=== PATIENT | male | born 1955 | race Caucasian/White ===

== ENCOUNTER 2023-09-17 18:36 | Inpatient (IN) | payer BC, MEDICARE, SELFPAY ==
[2023-09-17] VITALS (17 sets, daily range): BP systolic 158–199; BP diastolic 70–144; BMI 29.3
[2023-09-17 13:39] LABS: % Basophils 0.3 % (0-2); % Immature Granulocytes 0.5 % (0-0.5); % Lymphocytes 9.8 % (20.5-51.1); % Monocytes 5.8 % (1.7-9.3); % Neutrophils 83.6 % (42.2-75.2); Absolute Lymphocytes 0.6 10^3/uL (1.2-3.4); Absolute Monocytes 0.4 10^3/uL (0.1-0.6); Hematocrit 31.5 % (39.0-52.0); Hemoglobin 11.2 g/dL (13.0-18.0); Mean Corp Hgb Conc. 35.6 g/dL (33.0-37.0); Mean Corpuscular Hgb 31.7 pg (27.0-31.0); Mean Corpuscular Volume 89.2 fL (80.0-94.0); Mean Platelet Volume 8.2 fL (7.4-10.4); Nucleated Red Blood Cells % 0 % (-); Platelet Count 188 10^3/uL (130-400); Red Blood Cell Count 3.53 10^6/uL (4.70-6.10)
[2023-09-17] MEDS: NSS 1000 IV (13:41)
--- NOTE | 2023-09-17 13:46 | ED.GENMED ---
History of Present Illness
<Kwame Austin MD - Last Filed: 09/17/23 14:11>
General
Chief Complaint: Dizziness
Time Seen by Provider: 09/17/23 12:49
Travel History
Have you had any contact with someone who has COVID-19?: No
Do you have any symptoms of coronavirus? Fever > 100 degrees, chills, cough, shortness of breath, sore throat, loss of taste or smell, muscle aches, or headache?: No
<Twila Palomares PA-C - Last Filed: 09/17/23 17:47>
General
Source: patient and family
Exam Limitations: none
Nursing documentation reviewed up to this point in time: agreed with
History of Present Illness
History of Present Illness:
Patient is a 68-year-old male with past medical history of hypertension and insulin-dependent diabetes who presents to the emergency department accompanied by his father from his PCPs office for evaluation. Patient reports that his symptoms started
6 days ago shortly after eating some clams. Patient reports he developed nausea and vomiting but no diarrhea. Patient reports that the nausea and vomiting seem to improve although he did occasionally have it over the next few days. Patient
reports that he then developed a frontal headache, mostly between his eyes. Patient went to see his primary care provider who believed that his symptoms were due to dehydration. Patient was prescribed antinausea medication which he took and was
able to drink but was drinking less than usual. Patient reports that then 2 mornings ago, he woke up and had drooping of his right eyelid. Patient reports that this morning, he had double vision from his right eye. Patient reports the double
vision resolved but he still has some blurred vision. Patient went back to his primary care provider's office this morning and they referred him to the emergency department for concerns of possible subacute stroke. Patient does endorse persistent
mild headache. Patient also notes feeling 'off balance'. Patient denies fevers, chills, chest pain, shortness of breath, change in his bowel habits. Patient denies any history of similar in the past.
Past History
<Kwame Austin MD - Last Filed: 09/17/23 14:11>
Past History
ED Past Medical History: GERD, HTN, Hypercholesterolemia and NIDDM
ED Past Surgical History: Other (Left leg surgery for fracture )
Social History
Tobacco: Non-smoker
Alcohol: Occasional
Employment: Employed
Family History
Family History: Hypertension
Review of Systems
<Twila Palomares PA-C - Last Filed: 09/17/23 17:47>
Review of Systems
Allergies reviewed?: Yes
All Other Systems: ROS reviewed and negative except as documented in HPI and ROS
Constitutional: Reports no symptoms
EENT: Reports other (right eyelid drooping, diplopia, blurred vision)
Respiratory: Reports no symptoms
Cardiac: Reports no symptoms
ABD/GI: Reports nausea and vomiting; Denies abdominal pain or diarrhea
: Reports no symptoms
Musculoskeletal: Reports no symptoms
Skin: Reports no symptoms
Neurological: Reports dizzy and headache
Endocrine: Reports no symptoms
Hematologic/Lymphatic: Reports no symptoms
Psychiatric: Reports no symptoms
Phy Exam
<Twila Palomares PA-C - Last Filed: 09/17/23 17:47>
General Physical Exam
General Presentation: well appearing and no apparent distress
General Skin: warm and dry
General Habitus: normal
General Mental: alert
General Hydration: appears well hydrated
ENT Exam
ENT Exam: EOMI, pharynx normal, neck supple, normocephalic and other (right eyelid ptosis noted)
Eye Exam
Eye Exam: PERRL, cornea clear and conjunctiva normal
Cardiovascular Exam
Cardiovascular Exam: regular rate/rhythm, no edema, no murmur and normal peripheral pulses
Pulmonary Exam
Pulmonary Exam: lungs clear, no respiratory distress, no rales, no crackles, no rhonchi, no stridor, no wheezing and no cough
Gastrointestinal Exam
Gastrointestinal Exam: normal bowel sounds, non tender, soft, no organomegaly, no pulsatile mass and non distended
Neurological Exam
Neurological Exam: alert, oriented x3, no motor deficits, speech normal, cerebellum intact and facial droop
Musculoskeletal Exam
Musculoskeletal Exam: full ROM and no edema
Skin Exam
Skin Exam: normal color, warm/dry, no rash and no petechia
Psychiatric Exam
Psychiatric Exam: normal mood/affect
Scores
<Twila Palomares PA-C - Last Filed: 09/17/23 17:47>
NIH Stroke Score
Level of Consciousness: 0 - Alert
LOC Questions: 0-Answers both correctly
LOC Commands: 0-Performs both correctly
Best Horizontal Gaze: 0-Normal
Visual Soto: 0=Normal, no visual loss
Facial Palsy: 1=Minor paralysis
Motor - Right Arm: 0=No drift 10 seconds
Motor - Left Arm: 0=No drift 10 seconds
Motor - Right Le-No drift 5 seconds
Motor - Left Le-No drift 5 seconds
Limb Ataxia: 0-Absent
Sensation: 0-Normal
Best Language: 0-No aphasia
Dysarthria: 0-Normal
Extinction and Inattention: 0-No abnormality
Total Score:: 1
Course
<Kwame Austin MD - Last Filed: 09/17/23 14:11>
Orders/Labs/Results
Orders:
Orders
09/17/23 11:42
EKG [Electrocardiogram (*1)] Urgent
Reason for Study: Vertigo / Dizzy
EKG- Treatment ONCE
09/17/23 13:15
CT Head & Neck Angio W/wo IV Urgent
Comment:
Reason For Exam: headache, nausea, vomiting, right eyelid ptosis
09/17/23 13:17
EKG- Treatment ONCE
0.9% Sodium Chloride 1000 ml [Nss] 1,000 ml IV BOLUS
09/17/23 13:33
PTT Urgent
Prothrombin Time Urgent
Troponin I Urgent
09/17/23 13:34
Complete Blood Count/With Diff Urgent
09/17/23 14:44
Comprehensive Metabolic Panel Urgent
Abnormal Lab Results
09/17/23 09/17/23 09/17/23
13:33 13:34 14:44
RBC 3.53 L 10^6/uL
(4.70-6.10)
Hgb 11.2 L g/dL
(13.0-18.0)
Hct 31.5 L %
(39.0-52.0)
MCH 31.7 H pg
(27.0-31.0)
Absolute Lymphs (auto) 0.6 L 10^3/uL
(1.2-3.4)
Neutrophils % 83.6 H %
(42.2-75.2)
Lymphocytes % 9.8 L %
(20.5-51.1)
PT 20.1 H Sec
(11.4-14.6)
APTT 35.4 H Sec
(23.4-35.0)
Sodium 129 L mmol/L
(135-145)
Chloride 96 L mmol/L
(98-107)
Creatinine 0.6 L mg/dL
(0.7-1.3)
Glucose 168 H mg/dl
(70-99)
Troponin I 0.037 H* ng/ml
09/17/23 13:34
09/17/23 14:44
Vital Signs
Initial and Last Documented VS:
Initial Vital Signs
Temp Pulse Resp BP Pulse Ox
97.5 F 94 18 180/90 98
09/17/23 11:37 09/17/23 11:37 09/17/23 11:37 09/17/23 11:37 09/17/23 11:37
Last Documented Vital Signs
Temp Pulse Resp BP Pulse Ox
97.5 F 96 20 194/91 95
09/17/23 11:37 09/17/23 15:30 09/17/23 15:30 09/17/23 15:00 09/17/23 15:30
<Twila Palomares PA-C - Last Filed: 09/17/23 17:47>
Orders/Labs/Results
Orders:
Orders
09/17/23 11:42
EKG [Electrocardiogram (*1)] Urgent
Reason for Study: Vertigo / Dizzy
EKG- Treatment ONCE
09/17/23 13:15
CT Head & Neck Angio W/wo IV Urgent
Comment:
Reason For Exam: headache, nausea, vomiting, right eyelid ptosis
09/17/23 13:17
EKG- Treatment ONCE
0.9% Sodium Chloride 1000 ml [Nss] 1,000 ml IV BOLUS
09/17/23 13:33
PTT Urgent
Prothrombin Time Urgent
Troponin I Urgent
09/17/23 13:34
Complete Blood Count/With Diff Urgent
09/17/23 14:44
Comprehensive Metabolic Panel Urgent
Abnormal Lab Results
09/17/23 09/17/23 09/17/23
13:33 13:34 14:44
RBC 3.53 L 10^6/uL
(4.70-6.10)
Hgb 11.2 L g/dL
(13.0-18.0)
Hct 31.5 L %
(39.0-52.0)
MCH 31.7 H pg
(27.0-31.0)
Absolute Lymphs (auto) 0.6 L 10^3/uL
(1.2-3.4)
Neutrophils % 83.6 H %
(42.2-75.2)
Lymphocytes % 9.8 L %
(20.5-51.1)
PT 20.1 H Sec
(11.4-14.6)
APTT 35.4 H Sec
(23.4-35.0)
Sodium 129 L mmol/L
(135-145)
Chloride 96 L mmol/L
(98-107)
Creatinine 0.6 L mg/dL
(0.7-1.3)
Glucose 168 H mg/dl
(70-99)
Troponin I 0.037 H* ng/ml
09/17/23 13:34
09/17/23 14:44
Vital Signs
Initial and Last Documented VS:
Initial Vital Signs
Temp Pulse Resp BP Pulse Ox
97.5 F 94 18 180/90 98
09/17/23 11:37 09/17/23 11:37 09/17/23 11:37 09/17/23 11:37 09/17/23 11:37
Last Documented Vital Signs
Temp Pulse Resp BP Pulse Ox
97.5 F 96 20 194/91 95
09/17/23 11:37 09/17/23 15:30 09/17/23 15:30 09/17/23 15:00 09/17/23 15:30
<Twila Palomares PA-C - Last Filed: 09/17/23 17:47>
*Critical Care Note
Total Time (30-74mins, 75-104mins- exclusive of procedures): Not Applicable
<Twila Palomares PA-C - Last Filed: 09/17/23 17:47>
Update Note
Update Note:
Patient is a 68-year-old male past medical history of hypertension and insulin-dependent diabetes who presents to the emergency department for evaluation of symptoms that started approximately 1 week ago. Patient reports that symptoms started with
nausea and vomiting. Patient reports that he then developed headache and an off-balance feeling. Patient reports that this morning he had double vision which transitioned to blurred vision. Finally, patient notes that 2 days ago he did wake up
with drooping of his right eyelid. Patient was sent to the emergency department by his PCP for concerns of possible stroke. On arrival, patient is hypertensive, afebrile. On exam, patient is well-appearing, he is in no acute distress, he does
have an obvious right eyelid ptosis with possible slight droop of the right nasolabial fold but no other neurological findings, he has a normal cardiopulmonary exam, and a benign abdomen. EKG was obtained and demonstrates a right bundle branch
block without evidence of acute ischemic changes or dysrhythmia. Labs notable for a mildly elevated troponin of 0.037 of unclear significance. CTA of the head and neck demonstrates evidence of small chronic infarcts as well as diffuse
atherosclerotic plaques but no evidence of acute abnormality. Case discussed with ED attending, will admit for neurology consultation and likely MRI. All results were discussed with the patient as well who expressed understanding and agreed.
Patient signed out to the hospitalist without complication.
ED Attending Note
<Kwame Austin MD - Last Filed: 09/17/23 14:11>
ED Attending Note
Patient seen and examined by attending physician: Yes
I performed the substantive portion of visit, reviewed & personally made and approve the management plan that is documented in note by myself or DAISHA.: Yes
ED Attending Note:
68-year-old male started with dizziness 4 to 5 days ago. Noted eye droop 2 to 3 days ago. Some headaches. Some dizziness. Intermittent double vision today.
On exam patient is nontoxic. He has an obvious right eyelid droop. He may have some loss of the right nasolabial fold. Speech is normal. Extraocular muscles intact. No eye palsy noted. Strong forehead muscles. [id number] normal. Nonfocal
otherwise.
Ptosis with questionable right facial droop and dizziness. Workup in progress. Warrants inpatient management
-
Portions of this chart may have been created with voice recognition software.� Occasional wrong word or��sound alike� substitutions may have occurred due to the inherent limitations of voice recognition software.
Discharge Plan
Departure
Patient Disposition: Admit
Date of Disposition: 09/17/23
Time of Disposition: 17:38
Presentation/result/management discussed w/ accepting MD/DO: Hospitalist
Patient with high blood pressure during this ER visit?: Yes
Condition: Good
Covid-19: Not Applicable
Discharge Problem:
Headache, Facial droop, Nausea & vomiting, Elevated troponin
Prescriptions:
No Action
aspirin 81 MG tablet,delayed release (DR/EC)
81 mg PO DAILY
pantoprazole 40 MG tablet,delayed release (DR/EC)
40 mg PO DAILY Qty: 15 0RF
atorvastatin 20 mg Tablet
20 mg PO DAILY
ondansetron 8 mg tablet,disintegrating
8 mg PO DAILY PRN (Reason: nausea/vomiting)
albuterol sulfate 90 mcg/actuation Hfa Aerosol Inhaler
1 puff INHALATION R Q4HPRN PRN (Reason: sob/wheezing)
insulin aspart U-100 [Novolog FlexPen U-100 Insulin] 100 unit/mL (3 mL) insulin pen
14 unit SC MEALS
insulin glargine [Lantus Solostar U-100 Insulin] 100 unit/mL (3 mL) insulin pen
45 unit SC HS
Referrals:
Cayetano Arana MD [Family Provider] -
Interventions
Interventions:
*Risk Screen - Suicide Last Done: 09/17/23 13:14
*General Assessment Last Done: 09/17/23 13:14
*Neglect/Abuse Screening Last Done: 09/17/23 13:14
*ED COVID-19 Vaccine History Last Done: 09/17/23 11:37
ED- Neurological Assessment Last Done: 09/17/23 13:14
Discharge Date and Time
Print Language: MOROCCAN
[2023-09-17 13:49] LABS: INR 1.73; PT 20.1 Sec (11.4-14.6)
[2023-09-17 13:50] LABS: APTT 35.4 Sec (23.4-35.0)
[2023-09-17 14:09] LABS: Troponin I 0.037 ng/ml
[2023-09-17 15:07] LABS: ALT (SGPT) 19 U/L (0-50); AST (SGOT) 25 U/L (17-59); Albumin 4.5 g/dl (3.5-5.0); Alkaline Phosphatase 78 U/L (38-126); Blood Urea Nitrogen 19 mg/dl (9-20); Calcium 9.6 mg/dl (8.4-10.2); Carbon Dioxide 22 mmol/L (22-30); Chloride 96 mmol/L (98-107); Glucose 168 mg/dl (70-99); Potassium 4.4 mmol/L (3.5-5.1); Sodium 129 mmol/L (135-145); Total Bilirubin 1.3 mg/dl (0.2-1.3); Total Protein 7.6 g/dl (6.3-8.2); eGFR > 60.00
--- NOTE | 2023-09-17 17:45 | HPS.HSE ---
Family Physician
-
Family Physician: Cayetano Arana
Chief Complaint
-
Headache, right upper eyelid droop with double vision, nausea
History of Present Illness
68-year-old male from home who reports for the past few days he has had pressure at the top of his nose between eyebrows including behind his nose with some pressure in the nares and occasional runny nose. He reports he has bad seasonal allergies
although is not taking any medications or nasal sprays. He states he has had nausea and vomiting for 6 days after eating clams and thought he was dehydrated. He was prescribed antinausea medication by his PCP. He also noted a right upper eyelid
droop 2 days ago then today developed double vision from the right eye. He went to his PCP this a.m. and was sent to the ER for evaluation of stroke. He reports a current head pressure of 1 out of 10, denies blurred vision, sore throat, fever,
chills, chest pain, palpitations, shortness breath, cough, abdominal pain, nausea, vomiting, diarrhea
PMH HTN, HLD, pericarditis, ex-smoker, GERD, DM2.
Medical History
Past Medical History
Past Medical History: Reports Other
Additional Past Medical History:
HTN
HLD
pericarditis
ex-smoker
GERD
DM2
Past Surgical History: Reports Other
Additional Past Surgical History:
ORIF left tib-fib May 2005
Social History
Tobacco: Non-smoker
Alcohol: Other (Weekly 5-7 beers)
Personal: Single
Living: With Family (Patient's father was with him)
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
Family History
Family History: Other (Mother age 91 dementia history TIA, pacemaker Father Alive unsure any medical problems Sister alive unsure any medical problems)
Allergies / Home Medications
Allergies reflects when Allergies were last updated in [employer].
Home Medications with original date entered in [employer]
Allergy/Medication List:
Allergies
Allergy/AdvReac Type Severity Reaction Status Date / Time
levofloxacin Allergy Severe Unknown Verified 09/17/23 11:41
Home Medications
pantoprazole 40 mg tablet,delayed release 40 mg PO DAILY #15 tabs 05/11/13
albuterol sulfate 90 mcg/actuation aerosol inhaler 1 puff inhalation R Q4HPRN PRN sob/wheezing 09/17/23
atorvastatin 20 mg tablet 20 mg PO DAILY 09/17/23
insulin aspart U-100 100 unit/mL (3 mL) subcutaneous pen (Novolog FlexPen U-100 Insulin aspart) 12 unit SC MEALS 09/17/23
insulin glargine 100 unit/mL (3 mL) subcutaneous pen (Lantus Solostar U-100 Insulin) 44 unit SC DAILY 09/17/23
losartan 100 mg-hydrochlorothiazide 12.5 mg tablet 1 tab PO DAILY 09/17/23
ondansetron 8 mg disintegrating tablet 8 mg PO DAILY PRN nausea/vomiting 09/17/23
Review of Systems
-
History Source: Patient
A 12 point ROS was completed and negative except as noted: Yes
Constitutional: Denies Fever or Chills
EENT: Reports Runny Nose and Other (Right upper eyelid droop, nasal pressure with rhinorrhea); Denies Sore Throat
Respiratory: Denies Cough or Trouble Breathing
Cardiac: Denies Chest Pain, Diaphoresis, Palpitations or Syncope
Abdomen/GI: Reports Nausea; Denies Abdominal Pain, Vomiting, Diarrhea, Constipated, Bloody Stools or Black Stools
: Denies Dysuria, Frequency, Flank Pain, Incontinence, Difficulty Voiding or Urgency
Musculoskeletal: Denies Joint Pain or Edema
Skin: Denies Itching or Rash
Neurological: Reports Headache and Other (Right upper eyelid droop); Denies Dizzy or Weakness
Endocrine: Reports No Symptoms
Hematologic/Lymphatic: Reports No Symptoms
Psych: Reports Calm
Physical Exam
Vital Signs
Vital Signs
Temp Pulse Resp BP Pulse Ox
97.5 F 96 20 194/91 95
09/17/23 11:37 09/17/23 15:30 09/17/23 15:30 09/17/23 15:00 09/17/23 15:30
Physical Exam
General: Comfortable and Conversant; No Fever or Chills
HEENT: NormoCephalic, Anicteric, Moist mucous membranes, PERRLA, Vandiver Conjunctivae and Other (Right upper eyelid droop, nasally congested when talking)
Respiratory: Clear; No Wheezes, Rales or Rhonchi
Cardiac: S1/S2 and Regular Rhythm; No Murmur, Rub, Gallop or Peripheral Edema
Breast: Deferred by me
GI: Soft, Non Tender, Non Distended, Normal Bowel Sounds and No Hepatosplenomegaly
Rectal: Deferred by Provider
Genito-urinary: Deferred by me
Musculoskeletal: No Clubbing, No Cyanosis and No Edema
Neuro: AO x 3, Nonfocal/grossly intact, No Sensory Deficits and Other (Right upper eyelid droop); No Slurred Speech or Facial Droop
Psych: Calm
Laboratory Results
-
09/17/23 13:34
09/17/23 14:44
Laboratory Results
PT 20.1 Sec (11.4-14.6) H 09/17/23 13:33
INR 1.73 09/17/23 13:33
APTT 35.4 Sec (23.4-35.0) H 09/17/23 13:33
Total Bilirubin 1.3 mg/dl (0.2-1.3) 09/17/23 14:44
AST 25 U/L (17-59) 09/17/23 14:44
ALT 19 U/L (0-50) 09/17/23 14:44
Alkaline Phosphatase 78 U/L (38-126) 09/17/23 14:44
Troponin I 0.037 ng/ml H* 09/17/23 13:33
Impression/Plan
-
Impression/plan:
Admit to telemetry
# Right upper eyelid droop concern for CVA/TIA
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
Symptoms of headache, Right upper eyelid droop x 2 days, 1 day diplopia right eye
-Consult Neurology
-MRI brain
-Check lipid profile, HgbA1c
-Continue give aspirin 81 mg daily, atorvastatin 20 mg
-PT/OT/case operator consult
HEAD CTA:
1. 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
2. Mild diffuse cerebral volume loss.
3. Severe calcific atherosclerotic plaque in both intracranial internal carotid arteries causing a 50-70% diameter stenosis in the cavernous segment of the left internal carotid artery.
4. 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
5. 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
6. Moderate hypoplasia of the basilar artery and small bilateral posterior cerebral arteries.
7. No CT evidence for acute intracranial hemorrhage or transcortical infarct.
8. SEVERE LEFT SPHENOID SINUSITIS. Moderate left maxillary and ethmoid air cell sinusitis.
#Atherosclerosis bilateral carotid arteries/>70% Right vertebral artery atherosclerotic plaque per CTA neck
NECK CTA:
1. Severe calcific atherosclerotic plaque in both proximal internal carotid arteries causing a 50-70% diameter stenosis on the right and 50% diameter stenosis on the left.
2. Severe calcific atherosclerotic plaque at the origin of the right vertebral artery causing a greater than 70% diameter stenosis.
3. Moderate discogenic degenerative disease at C6/C7 with a right central disc-osteophyte complex causing mild to moderate spinal cord compression and central canal stenosis.
# HTN urgency
158/144
-Continue losartan/HCTZ
-IV hydralazine 10 mg every 6 hours as needed SBP greater than 165
#Nonischemic myocardial injury
Troponin 0.037 will trend
EKG: Sinus rhythm with PACs 92 bpm, RBBB, QTc 507 MS
#Hx pericarditis
#Hyponatremia
NA 129
- follow bmp
#DM2
BS 168
-Accu-Cheks with SSI, check HgbA1c
-Continue Lantus 44 units subcu daily and NovoLog 12 units with meals
#GERD
-Continue PPI
#Ex-smoker
Dvt
scd's
Full code
--- NOTE | 2023-09-17 18:06 | W.PN.UPDATE ---
Update Note
Progress Note Update
I saw and examined the patient.
The MEDICAL OPERATIONS SUPERVISOR or PA's note was reviewed and I agree with the note.
Comment: 68 y/o M who p/w with multiple chief complaints including nausea and vomiting, frontal headache, and right ptosis for approximately a day and a half.
158/144, 89, 12, 97.5 F, 97% RA
NAD, awake and alert, NCAT
R ptosis
RRR, normal S1/S2
CTAB
aside from R ptosis, CN2-12 intact, non-focal
Lab Results
09/17/23 09/17/23 09/17/23
13:33 13:34 14:19
WBC 6.0
RBC 3.53 L
Hgb 11.2 L
Hct 31.5 L
MCV 89.2
MCH 31.7 H
MCHC 35.6
RDW 13.0
Plt Count 188
MPV 8.2
Abs Immat Gran (auto) 0.0
Absolute Neuts (auto) 5.0
Absolute Lymphs (auto) 0.6 L
Absolute Monos (auto) 0.4
Absolute Eos (auto) 0.0
Absolute Basos (auto) 0.0
Immature Gran % 0.5
Neutrophils % 83.6 H
Lymphocytes % 9.8 L
Monocytes % 5.8
Eosinophils % 0.0
Basophils % 0.3
Nucleated RBC % 0
PT 20.1 H
INR 1.73
APTT 35.4 H
Sodium Cancelled Cancelled
Potassium Cancelled Cancelled
Chloride Cancelled Cancelled
Carbon Dioxide Cancelled Cancelled
BUN Cancelled Cancelled
Creatinine Cancelled Cancelled
Estimated Creat Clear Cancelled Cancelled
eGFR Cancelled Cancelled
Glucose Cancelled Cancelled
Calcium Cancelled Cancelled
Total Bilirubin Cancelled Cancelled
AST Cancelled Cancelled
ALT Cancelled Cancelled
Alkaline Phosphatase Cancelled Cancelled
Troponin I 0.037 H*
Total Protein Cancelled Cancelled
Albumin Cancelled Cancelled
09/17/23
14:44
WBC
RBC
Hgb
Hct
MCV
MCH
MCHC
RDW
Plt Count
MPV
Abs Immat Gran (auto)
Absolute Neuts (auto)
Absolute Lymphs (auto)
Absolute Monos (auto)
Absolute Eos (auto)
Absolute Basos (auto)
Immature Gran %
Neutrophils %
Lymphocytes %
Monocytes %
Eosinophils %
Basophils %
Nucleated RBC %
PT
INR
APTT
Sodium 129 L
Potassium 4.4
Chloride 96 L
Carbon Dioxide 22
BUN 19
Creatinine 0.6 L
Estimated Creat Clear
eGFR > 60.00
Glucose 168 H
Calcium 9.6
Total Bilirubin 1.3
AST 25
ALT 19
Alkaline Phosphatase 78
Troponin I
Total Protein 7.6
Albumin 4.5
CTA head/neck:
NECK CTA:
1. Severe calcific atherosclerotic plaque in both proximal internal carotid arteries causing a 50-70% diameter stenosis on the right and 50% diameter stenosis on the left.
2. Severe calcific atherosclerotic plaque at the origin of the right vertebral artery causing a greater than 70% diameter stenosis.
3. Moderate discogenic degenerative disease at C6/C7 with a right central disc-osteophyte complex causing mild to moderate spinal cord compression and central canal stenosis.
HEAD CTA:
1. Severe calcific atherosclerotic plaque in both intracranial internal carotid arteries causing a 50-70% diameter stenosis in the cavernous segment of the left internal carotid artery.
2. 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
3. 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
4. Moderate hypoplasia of the basilar artery and small bilateral posterior cerebral arteries.
5. No CT evidence for acute intracranial hemorrhage or transcortical infarct.
6. 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
7. Mild diffuse cerebral volume loss.
8. SEVERE LEFT SPHENOID SINUSITIS. Moderate left maxillary and ethmoid air cell sinusitis.
Multitude of symptoms including recent nausea and vomiting, frontal headache, right-sided ptosis:
-Presented by the ER as concern for acute CVA
-CT angiogram of the head and neck notable for atherosclerotic disease and prior strokes in the right daigle radiata and both basal ganglia
-start ASA, cont statin
-admit to stroke pathway, MRI brain, tele
-c/s neuro
Hypertensive urgency:
-Continue losartan/hydrochlorothiazide
-IV hydralazine as needed
-Trend blood pressure and consider adding additional antihypertensive medications within the next 24 hours
DM2:
-check a1c
-cont Lantus/premeal Novolog
-SSI/accuchecks
[2023-09-17] MEDS: ASPIR LOW (ENTERIC COATED) 81 MG PO (18:32)
[2023-09-17] MEDS: APRESOLINE 10 MG IV ×2 (18:33→22:38)
[2023-09-17 21:46] LABS: Glucose - Point of Care 134 mg/dl (70-99)
[2023-09-17] MEDS: TYLENOL 650 MG PO (22:52)
[2023-09-18] VITALS (8 sets, daily range): BP systolic 122–161; BP diastolic 64–83; PULSE 96; O2SAT 97; BMI 29.3
[2023-09-18] MEDS: TYLENOL 650 MG PO (05:32)
[2023-09-18 06:39] LABS: % Basophils 0.6 % (0-2); % Immature Granulocytes 0.5 % (0-0.5); % Lymphocytes 23.2 % (20.5-51.1); % Neutrophils 63.7 % (42.2-75.2); Absolute Basophils 0.1 10^3/uL (0-0.2); Absolute Eosinophils 0.1 10^3/uL (0-0.7); Absolute Immature Granulocytes 0.1 10^3/uL (0-0.05); Absolute Lymphocytes 2.5 10^3/uL (1.2-3.4); Absolute Monocytes 1.2 10^3/uL (0.1-0.6); Absolute Neutrophils 6.7 10^3/uL (1.4-6.5); Hematocrit 46.4 % (39.0-52.0); Hemoglobin 16.7 g/dL (13.0-18.0); Mean Corpuscular Hgb 31.5 pg (27.0-31.0); Mean Corpuscular Volume 87.5 fL (80.0-94.0); Mean Platelet Volume 8.6 fL (7.4-10.4); Nucleated Red Blood Cells % 0 % (-); Platelet Count 343 10^3/uL (130-400); Red Cell Dist. Width 13.1 % (11.5-14.5); White Blood Cell Count 10.6 10^3/uL (4.8-10.8)
[2023-09-18 06:41] LABS: Blood Urea Nitrogen 17 mg/dl (9-20); Calcium 9.1 mg/dl (8.4-10.2); Carbon Dioxide 23 mmol/L (22-30); Chloride 98 mmol/L (98-107); Estimated Creatinine Clearance 100 ml/min; Glucose 124 mg/dl (70-99); HDL Cholesterol 53 mg/dl; LDL Cholesterol, Calculated 166 mg/dl; Sodium 132 mmol/L (135-145); Total Cholesterol 239 mg/dl (50-199); Triglyceride 104 mg/dl (10-149); Very Low Density Lipoprotein 20 mg/dl (0-30); eGFR > 60.00
[2023-09-18 08:00] LABS: Glucose - Point of Care 125 mg/dl (70-99)
[2023-09-18] MEDS: HYZAAR 100-12.5 TABLET 1 TAB PO (08:18)
[2023-09-18] MEDS: PROTONIX 40 MG PO (08:19)
[2023-09-18] MEDS: LIPITOR 20 MG PO (08:19)
[2023-09-18] MEDS: LANTUS 0.440000000000000002 UNITS SC (08:19)
[2023-09-18] MEDS: ASPIR LOW (ENTERIC COATED) 81 MG PO (08:19)
--- NOTE | 2023-09-18 08:22 | W.PN.HOSP.TC ---
Today's Communication/Plan
-
see bold
Assessment / Plan
Assessment / Plan
Gen: NAD, AAOx3.
Eyes: EOMI, PERRLA, no scleral icterus, R ptosis.
Neck: supple.
CV: RRR, +S1/S2, no m/r/g.
Resp: CTAB, no rales, wheezes, or rhonchi.
Abd: +BS, soft, NT, ND
Skin: No rashes.
Neuro: R ptosis, 5/5 strength x 4
Psych: Normal mood and affect.
CTA head/neck:
NECK CTA:
1. Severe calcific atherosclerotic plaque in both proximal internal carotid arteries causing a 50-70% diameter stenosis on the right and 50% diameter stenosis on the left.
2. Severe calcific atherosclerotic plaque at the origin of the right vertebral artery causing a greater than 70% diameter stenosis.
3. Moderate discogenic degenerative disease at C6/C7 with a right central disc-osteophyte complex causing mild to moderate spinal cord compression and central canal stenosis.
HEAD CTA:
1. Severe calcific atherosclerotic plaque in both intracranial internal carotid arteries causing a 50-70% diameter stenosis in the cavernous segment of the left internal carotid artery.
2. 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
3. 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
4. Moderate hypoplasia of the basilar artery and small bilateral posterior cerebral arteries.
5. No CT evidence for acute intracranial hemorrhage or transcortical infarct.
6. 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
7. Mild diffuse cerebral volume loss.
8. SEVERE LEFT SPHENOID SINUSITIS. Moderate left maxillary and ethmoid air cell sinusitis.
Multitude of symptoms including recent nausea and vomiting, frontal headache, right-sided ptosis:
-Presented by the ER as concern for acute CVA
-CT angiogram of the head and neck notable for atherosclerotic disease and prior strokes in the right daigle radiata and both basal ganglia
-cont ASA/statin
-check MRI brain
-cont tele (no afib/flutter on my review)
-c/s neuro
Hypertensive urgency:
-Continue losartan/hydrochlorothiazide
-start Procardia XL
-IV hydralazine as needed
DM2:
-check a1c
-cont Lantus/premeal Novolog
-SSI/accuchecks
FULL/Lovenox
Anticipated Discharge: Within 24 hours
Subjective/Interval History
-
Date of Service: September 18, 2023
Still with blurry vision in the right eye.
Objective Data
-
Labs:
Laboratory Results
09/18/23
05:18
WBC 10.6
Hgb 16.7 D
Hct 46.4
Plt Count 343 D
Sodium 132 L
Potassium 4.0
Chloride 98
Carbon Dioxide 23
BUN 17
Creatinine 0.7
Glucose 124 H
Calcium 9.1
Vital Signs:
Vital Signs
Temp Pulse Resp BP Pulse Ox
98.0 F 95 18 127/64 97
09/18/23 03:00 09/18/23 03:00 09/18/23 03:00 09/18/23 03:00 09/18/23 03:00
I&O
09/17/23 09/18/23 09/19/23
06:59 06:59 06:59
Intake Total 120 / 120
Balance 120 / 120
[2023-09-18] MEDS: NOVOLOG FLEXPEN SC (08:32)
--- NOTE | 2023-09-18 09:35 | CON.NEURO ---
Neuro Assessment/Plan
Assessment
IMPRESSIONS/RECOMMENDATIONS:
Abrupt onset headache, ptosis, 3rd nerve palsy on the right
In a patient with questionable immunosuppression due to poorly controlled diabetes
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
Plan
Consider lumbar puncture based on MRI of brain results
Not clear patient would benefit from use of antibiotics for severe left sphenoid sinusitis
Consider outpatient vascular surgery evaluation based on significant bilateral proximal internal artery stenosis estimated between 50 and 70% on the right and 50% on the left
Increase atorvastatin dosing from 20 to 80 mg due to elevated cholesterol and LDL with prior chronic ischemic lacunar strokes as per CT of head
Not clear patient would benefit from neurosurgical evaluation at this time
Initiate aspirin 81 mg daily due to demonstration of lacunar strokes by MRI brain
Rehabilitation evaluations
Will continue to follow
Consultation
Order
Date of Consultation: 09/18/23
Requesting Provider: Hospitalists
Reason for Consult: Right eye ptosis and headache
Subjective/Objective
Subjective Data
Date of Service: September 18, 2023
Patient presented to his primary care provider on the same day of presentation to this [facility]'s emergency department.
Patient was described as developing 7 days prior to his presentation with nausea and emesis on September 11, 2023 with persistent abdominal discomfort.
Burning sensation behind the nose= headache on September 13, 2023, constant since onset, worsening sensation in right eye.
Drooping of right eye lid started September 15, 2023.
September 16, 2023 developed dizziness upon awakening. Standing and moving head fast worsens. Variable.
The patient then diplopia blurring in the right eye. None previously.
The patient was described at his visit with his PCP as having 20/50 vision on the right and 20/30 on the left with glasses.
The patient was noted to have worsening gait and therefore was referred to this hospital's emergency department.
Intensity 1 out 10 currently.
Objective Data
Vital Signs
Temp Pulse Resp BP Pulse Ox
36.6 C 88 16 149/79 95
09/18/23 07:00 09/18/23 08:18 09/18/23 07:00 09/18/23 08:18 09/18/23 07:00
Lab Results
09/18/23 05:18
09/18/23 05:18
PT 20.1 Sec (11.4-14.6) H 09/17/23 13:33
INR 1.73 09/17/23 13:33
APTT 35.4 Sec (23.4-35.0) H 09/17/23 13:33
Sodium 132 mmol/L (135-145) L 09/18/23 05:18
Potassium 4.0 mmol/L (3.5-5.1) 09/18/23 05:18
BUN 17 mg/dl (9-20) 09/18/23 05:18
Glucose 124 mg/dl (70-99) H 09/18/23 05:18
Calcium 9.1 mg/dl (8.4-10.2) 09/18/23 05:18
LDL Cholesterol, Calc 166 mg/dl 09/18/23 05:18
Patient Allergies
levofloxacin Allergy (Severe, Verified 09/17/23 11:41)
Unknown
Review of Systems
-
History Source: Patient
All other systems: Reviewed and negative
EENT: Decreased Vision (in the right eye); Negative Swallowing Difficulty
Respiratory: Negative Trouble Breathing
Cardiac: Negative Chest Pain
Abdomen/GI: Negative Incontinence of Stool
Genitourinary: Negative Incontinence
Musculoskeletal: Negative Back Pain or Neck Pain
Neuro: Dizzy and Headache
Physical Exam
-
General: No Apparent Distress and Appears Stated Age
Eyes: OU Absent Papilledema, Round OU, Marshall Conjunctivae and No Ptosis
HEENT: Anicteric and Moist Mucous Membranes
Neck: Full Range of Motion
Respiratory: No Dyspnea
Cardiac: No JVD
GI: Normal Bowel Sounds and Soft
Skin: Unremarkable
Extremities: No Clubbing, No Cyanosis and No Edema
Psych: Intact Judgement/Insight
Extended Neurological Exam
Mood & Affect: Mood Unremarkable and Affect Unremarkable
Attention Span & Concentration: Awake, Alert, Interactive and Mild Difficulty with 2 Step Request
Memory: Unremarkable
Tremor: Hand Tremor Absent and Head Tremor Absent
Speech: Quality Unremarkable and Quantity Unremarkable
Cranial Nerve II: Left Eye: Pupillary Reactivity Unremarkable, Pupillary Size Unremarkable and Visual Soto Intact
Cranial Nerve II: Right Eye: Pupillary Reactivity Unremarkable, Pupillary Size Unremarkable and Visual Soto Intact
Cranial Nerves III, IV, : Extraocular Movement: Ptosis on Right (touches middle of iris); Negative Extraocular Movement Full in all Directions (reduced ABduction and upgaze with right eye, full left eye)
Cranial Nerve V: Facial Sensation: Reduced
Cranial Nerve VII: Facial Symmetry: Normal Facial Symmetry
Cranial Nerve VIII: Hearing: Unremarkable Hearing to Normal Conversational Volume
Cranial Nerves IX, X: Palate Movement: Palate Elevation Symmetric
Cranial Nerve XI: Shoulder Shrug: Unremarkable
Cranial Nerve XII: Tongue Protusion: Midline
Muscle Strength, Overall: Full Throughout
Muscle Bulk & Tone: Bulk Unremarkable and Tone Unremarkable
Pronator Drift: No Drift in Upper Extremities
Deep Tendon Reflexes: Trace Throughout
Touch Sensation: Unremarkable
Coordination: [id number] Testing Unremarkable
Babinski Sign: Absent Bilaterally
Data Reviewed
-
CT-A: Report Reviewed (NECK CTA: 1. Severe calcific atherosclerotic plaque in both proximal internal carotid arteries causing a 50-70% diameter stenosis on the right and 50% diameter stenosis on the left. 2. Severe calcific atherosclerotic
plaque at the origin of the right vertebral artery causing a greater than 70% )
MRI Head: Report Reviewed and Image Reviewed
Labs: Report Reviewed
Reviewed with: Physician, Nurse and Patient
Old Records: Summarized
Medications
-
Active Medications
Generic Name Dose Route Start Last Admin
Trade Name Freq PRN Reason Stop Dose Admin
Acetaminophen 650 mg 09/17/23 20:16
Acetaminophen 650 Mg Rectal Suppository RECTAL 10/15/23 20:15
Q4HPRN PRN
WARE, mild pain, or temp >100.4F
Acetaminophen 650 mg 09/17/23 20:16 09/18/23 05:32
Acetaminophen 325 Mg Tablet PO 10/15/23 20:15 650 mg
Q4HPRN PRN Administration
WARE, mild pain, or temp >100.4F
Aspirin 81 mg 09/18/23 08:00 09/18/23 08:19
Aspirin 81 Mg (Enteric Coated) Tablet PO 10/16/23 07:59 81 mg
DAILY LYNNE Administration
Atorvastatin Calcium 20 mg 09/18/23 08:00 09/18/23 08:19
Atorvastatin (Lipitor) 20 Mg Tablet PO 10/16/23 07:59 20 mg
DAILY LYNNE Administration
Dextrose 12.5 grams 09/17/23 20:16
Dextrose 50% (0.5 Grams/Ml) 50 Ml Syringe IV 10/15/23 20:15
[id number] PRN
hypoglycemia
Protocol
Enoxaparin Sodium 40 mg 09/18/23 18:00
Enoxaparin Sodium 40 Mg/0.4 Ml Syringe SC 10/16/23 17:59
QPM LYNNE
Glucagon 1 mg 09/17/23 20:16
Glucagon 1 Mg Vial IM 10/15/23 20:15
PRN PRN
hypoglycemia
Protocol
HCTZ/Losartan Potassium 1 tab 09/18/23 08:00 09/18/23 08:18
Losartan (100 Mg)/Hydrochlorothiazide (12.5 Mg) Tablet PO 10/16/23 07:59 1 tab
DAILY LYNNE Administration
Hydralazine HCl 10 mg 09/17/23 22:14 09/17/23 22:38
Hydralazine 20 Mg/Ml Vial IV 10/15/23 22:13 10 mg
Q4HPRN PRN Administration
SBP>165
Insulin Glargine 44 units/ 0.44 mls @ 0 mls/hr 09/18/23 08:00 09/18/23 08:19
Device SC 10/16/23 07:59 0.44 mls
DAILY LYNNE Administration
As Directed
Insulin Aspart 12 units 09/18/23 08:00 09/18/23 08:32
Insulin Aspart (100 Units/Ml) 3 Ml Flexpen SC 10/16/23 07:59 Not Given
MEALS LYNNE
Ondansetron HCl 8 mg 09/17/23 22:32
Ondansetron 4 Mg (Orally-Disintegrating) Tablet PO 10/15/23 22:31
DAILY PRN
nausea/vomiting
Pantoprazole Sodium 40 mg 09/18/23 08:00 09/18/23 08:19
Pantoprazole 40 Mg Delayed Release Tablet PO 10/16/23 07:59 40 mg
DAILY LYNNE Administration
Sodium Chloride 0 flush 09/17/23 23:00
Sodium Chloride 0.9% (Flush) Syringe IV 10/15/23 22:59
PER PROTOCOL LYNNE
Home Medications
�Medication �Instructions �Recorded
pantoprazole 40 mg tablet,delayed 40 mg PO DAILY #15 tabs 05/11/13
release
albuterol sulfate 90 mcg/actuation 1 puff inhalation R Q4HPRN PRN 09/17/23
aerosol inhaler sob/wheezing
atorvastatin 20 mg tablet 20 mg PO DAILY High Cholesterol 09/17/23
insulin aspart U-100 100 unit/mL 12 unit SC MEALS Diabetes 09/17/23
(3 mL) subcutaneous pen (Novolog
FlexPen U-100 Insulin aspart)
insulin glargine 100 unit/mL (3 44 unit SC DAILY Diabetes 09/17/23
mL) subcutaneous pen (Lantus
Solostar U-100 Insulin)
losartan 100 1 tab PO DAILY Blood Pressure 09/17/23
mg-hydrochlorothiazide 12.5 mg
tablet
ondansetron 8 mg disintegrating 8 mg PO DAILY PRN nausea/vomiting 09/17/23
tablet
Past History
Past History
ED Past Medical History: GERD, HTN, Hypercholesterolemia, NIDDM and Other (Pericarditis, obesity)
ED Past Surgical History: Other (Left leg surgery for fracture, transforaminal epidural steroids at L4 in 2020)
Social History
Tobacco: Non-smoker
Alcohol: Occasional
Employment: Employed
Family History
Family History: Hypertension
[2023-09-18 10:17] LABS: Glycohemoglobin (HgbA1c) 8.7 % (4.0-5.6)
[2023-09-18] MEDS: PROCARDIA XL (EXTENDED RELEASE) 30 MG PO (11:36)
[2023-09-18 11:39] LABS: Glucose - Point of Care 185 mg/dl (70-99)
[2023-09-18] MEDS: NOVOLOG FLEXPEN 12 UNITS SC ×2 (14:23→18:39)
[2023-09-18 16:53] LABS: Glucose - Point of Care 200 mg/dl (70-99)
[2023-09-18] MEDS: MESTINON 60 MG PO ×2 (17:18→21:17)
[2023-09-18] MEDS: LOVENOX 40 MG SC (17:18)
[2023-09-18 22:01] LABS: Glucose - Point of Care 98 mg/dl (70-99)
[2023-09-19 03:08] VITALS: BP 150/71
[2023-09-19 07:38] VITALS: BP 133/73
--- NOTE | 2023-09-19 08:23 | W.PN.NEURO.1 ---
Addendum entered and electronically signed by Davie Bond MD 09/19/23 12:24:
I saw and evaluate the patient I reviewed the note by Sowmya Worrell and agree with the findings the following comments:
68-year-old man with past medical history of diabetes, hypertension, pericarditis, hyperlipidemia presented to hospital with pain and pressure at the top of his nose and between his eyebrows as well as right-sided ptosis and binocular diplopia.
Before the onset of the pressure feeling in diplopia he had not had any unusual headaches, head or neck trauma, unilateral paresthesia or weakness or speech difficulty, jaw claudication or fever or chills or unusual weight loss. Double vision is
worse when looking to the left.
Neurologic examination shows normal mental status
There is right eye ptosis with impaired abduction of the right eye and minimally impaired elevation, pupils are symmetric and round and reactive to light bilaterally, other cranial nerves are normal left eye is normal movement
Motor strength notes no weakness of shoulder abduction
MRI brain with and without contrast does not show any abnormal enhancement in the cavernous sinus no signs of pituitary abnormality some chronic infarcts are noted.
CTA of the head and neck showed 57% right carotid stenosis and 50% stenosis on the left carotid, as well as intracranial atherosclerotic plaque in the intracranial portion of the carotid arteries bilaterally. No aneurysms seen.
Sinusitis in the left sphenoid is seen.
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 The right eye problems cannot be due to the left-sided sinusitis. There is still some possibility for myasthenia but I feel this is
less likely given he did not respond at all to Mestinon and has not had any fluctuating symptoms of diplopia and ptosis dysarthria dysphagia or motor symptoms.
Recommendations
-Stop pyridostigmine
-Add on labs for acetylcholine blocking binding and modulating antibodies
-Encourage control of diabetes
-He should patch to right eye and will be acceptable for driving with the right eye patched
-If this is indeed diabetic induced cranial nerve III palsy this will most likely improve over the course of several weeks to few months
-No further workup or monitoring felt necessary as an inpatient
-Aspirin 81 mg daily given asymptomatic chronic strokes seen on MRI brain and the carotid stenosis
Original Note:
Today's Communication / Plan
-
.
Neuro Assessment/Plan
Assessment
IMPRESSIONS/RECOMMENDATIONS:
Abrupt onset headache, ptosis, 3rd nerve palsy on the right in the setting of long-standing diabetes.
-CTA head/neck 09/17/23: NECK CTA: Severe calcific atherosclerotic plaque in both proximal internal carotid arteries causing a 50-70% diameter stenosis on the right and 50% diameter stenosis on the left. Severe calcific atherosclerotic plaque at the
origin of the right vertebral artery causing a greater than 70% diameter stenosis. Moderate discogenic degenerative disease at C6/C7 with a right central disc-osteophyte complex causing mild to moderate spinal cord compression and central canal
stenosis. HEAD CTA: Severe calcific atherosclerotic plaque in both intracranial internal carotid arteries causing a 50-70% diameter stenosis in the cavernous segment of the left internal carotid artery. Moderate hypoplasia of the left anterior
cerebral artery A1 segment. 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 Moderate hypoplasia of the basilar artery and small bilateral posterior cerebral arteries. No CT evidence for acute intracranial hemorrhage or transcortical
infarct. 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 Mild diffuse cerebral volume loss. SEVERE LEFT SPHENOID SINUSITIS. Moderate left maxillary and ethmoid air cell sinusitis.
-MRI brain noncontrast 09/18/23: No MRI evidence for acute infarct or intracranial hemorrhage. Small chronic transcortical ischemic infarct in the lateral right frontal lobe. Small chronic ischemic infarcts in the right daigle radiata, the anterior
limb of the left internal capsule, and right cerebellar hemisphere. Moderate white matter leukoaraiosis in the right parietal lobe daigle radiata. Mild to moderate diffuse cerebral volume loss.
SEVERE COMPLEX LEFT SPHENOID SINUSITIS, moderate sinusitis in the ethmoid air cells, and moderate left maxillary sinusitis.
-MRI brain w/ and w/o contrast 09/19/23: No MRI evidence for cavernous sinus thrombosis. Small chronic infarcts in the right frontal lobe daigle radiata, the anterior limb of the left internal capsule, the left putamen, and the right cerebellar
hemisphere. Complete opacification of the left sphenoid sinus with complex secretions.
I. Right eye cranial nerve 3 palsy likely secondary to ischemia related to diabetes.
II. MRI brain is negative for acute stroke, pituitary abnormality, or other structural abnormality to explain symptoms.
III. Old right frontal lobe, left internal capsule, and right cerebellar ischemic strokes.
IV. Severe left sphenoid sinusitis and moderate left maxillary sinusitis, likely unrelated to 3rd nerve palsy since on opposite sides.
V. R ICA 50-70% and L ICA 50% stenosis.
Plan
-Continue aspirin 81mg daily due to old strokes on MRI brain imaging.
-Consider outpatient vascular surgery evaluation based on significant bilateral proximal internal artery stenosis estimated between 50 and 70% on the right and 50% on the left.
-LDL goal <70. LDL is 166. Home atorvastatin increased from 20mg to 80mg daily.
-Goal normoglycemia, hbA1c is 8.7.
-Provide patient with a stroke education packet. Neurological checks per unit guidelines.
-Myasthenia panel pending. Discontinue pyridostigmine at this time as patient does not seem to have benefitted.
-PT/OT evaluations.
-DVT prophylaxis.
-Patient should follow-up with Neurology as an outpatient, may see the SOFTWARE RELEASE ENGINEER or one of the physicians.
Subjective/Objective
Subjective Data
Date of Service: September 19, 2023
No acute events overnight. Patient endorses ongoing diplopia with left-martin gaze, objects are diagonally double, which he describes as at 7 and 2 on a clock. This resolves with closing one eye. He denies any headache, dizziness, vision loss,
speech/swallow difficulty, numbness, weakness, nausea, chest pain, palpitations, and shortness of breath.
Objective Data
Vital Signs
Temp Pulse Resp BP Pulse Ox
98.6 F 101 16 133/73 96
09/19/23 07:38 09/19/23 07:38 09/19/23 07:38 09/19/23 07:38 09/19/23 07:38
Lab Results
09/18/23 05:18
09/18/23 05:18
PT 20.1 Sec (11.4-14.6) H 09/17/23 13:33
INR 1.73 09/17/23 13:33
APTT 35.4 Sec (23.4-35.0) H 09/17/23 13:33
Sodium 132 mmol/L (135-145) L 09/18/23 05:18
Potassium 4.0 mmol/L (3.5-5.1) 09/18/23 05:18
BUN 17 mg/dl (9-20) 09/18/23 05:18
Glucose 124 mg/dl (70-99) H 09/18/23 05:18
Calcium 9.1 mg/dl (8.4-10.2) 09/18/23 05:18
LDL Cholesterol, Calc 166 mg/dl 09/18/23 05:18
Patient Allergies
levofloxacin Allergy (Severe, Verified 09/17/23 11:41)
Unknown
LDL Level: Statin dose adjusted
Review of Systems
-
History Source: Patient
EENT: Negative Blurry Vision, Eye Pain, Decreased Vision or Swallowing Difficulty
Respiratory: Negative Cough or Trouble Breathing
Cardiac: Negative Chest Pain or Palpitations
Abdomen/GI: Negative Nausea
Neuro: Negative Dizzy, Headache, Weakness, Numbness, Ataxia, Tremors or Speech Problem
Physical Exam
-
General: Well Developed, Well Nourished and No Apparent Distress
Eyes: PERRLA; Negative No Ptosis (right eye slight ptosis)
HEENT: Normocephalic and Atraumatic
Neck: Full Range of Motion
Respiratory: No Dyspnea
GI: Non-distended
Extremities: No Clubbing, No Cyanosis and No Edema
Psych: Unremarkable
Extended Neurological Exam
Mood & Affect: Mood Unremarkable and Affect Unremarkable
Attention Span & Concentration: Awake, Alert and Interactive
Memory: Unremarkable (AAOx3) and Able to Recall
Tremor: Hand Tremor Absent and Head Tremor Absent
Involuntary Movement: None
Speech: Quality Unremarkable, Quantity Unremarkable and Rate of Production Unremarkable
Cranial Nerve II: Left Eye: Pupillary Reactivity Unremarkable, Pupillary Size Unremarkable and Visual Soto Intact
Cranial Nerve II: Right Eye: Pupillary Reactivity Unremarkable, Pupillary Size Unremarkable and Visual Soto Intact
Cranial Nerves III, IV, : Extraocular Movement: Ptosis on Right; Negative Extraocular Movement Left (Right eye with restricted adduction and slightly restricted upward gaze. Left eye EOMs intact.)
Cranial Nerve V: Facial Sensation: Intact to Light Touch
Cranial Nerve VII: Facial Symmetry: Normal Facial Symmetry
Cranial Nerve VIII: Hearing: Unremarkable Hearing to Normal Conversational Volume
Cranial Nerves IX, X: Palate Movement: Palate Elevation Symmetric
Cranial Nerve XI: Shoulder Shrug: Unremarkable
Cranial Nerve XII: Tongue Protusion: Midline
Muscle Strength, Overall: Full Throughout
Muscle Bulk & Tone: Bulk Unremarkable and Tone Unremarkable
Pronator Drift: No Drift in Upper Extremities and No Drift in Lower Extremities
Coordination: [id number] Testing Unremarkable
Babinski Sign: Absent Bilaterally
Data Reviewed
-
CT-A: Report Reviewed and Image Reviewed
MRI Head: Report Reviewed and Image Reviewed
Labs: Report Reviewed
Lipid Profile: Report Reviewed
HgbA1C: Report Reviewed
Reviewed with: Physician and Patient
Medications
-
Active Medications
Generic Name Dose Route Start Last Admin
Trade Name Freq PRN Reason Stop Dose Admin
Acetaminophen 650 mg 09/17/23 20:16
Acetaminophen 650 Mg Rectal Suppository RECTAL 10/15/23 20:15
Q4HPRN PRN
WARE, mild pain, or temp >100.4F
Acetaminophen 650 mg 09/17/23 20:16 09/18/23 05:32
Acetaminophen 325 Mg Tablet PO 10/15/23 20:15 650 mg
Q4HPRN PRN Administration
WARE, mild pain, or temp >100.4F
Aspirin 81 mg 09/19/23 08:00 09/19/23 08:33
Aspirin 81 Mg Chewable Tablet PO 10/17/23 07:59 81 mg
DAILY LYNNE Administration
Atorvastatin Calcium 80 mg 09/19/23 08:00 09/19/23 08:31
Atorvastatin (Lipitor) 20 Mg Tablet PO 10/17/23 07:59 80 mg
DAILY LYNNE Administration
Dextrose 12.5 grams 09/17/23 20:16
Dextrose 50% (0.5 Grams/Ml) 50 Ml Syringe IV 10/15/23 20:15
[id number] PRN
hypoglycemia
Protocol
Enoxaparin Sodium 40 mg 09/18/23 18:00 09/18/23 17:18
Enoxaparin Sodium 40 Mg/0.4 Ml Syringe SC 10/16/23 17:59 40 mg
QPM LYNNE Administration
Glucagon 1 mg 09/17/23 20:16
Glucagon 1 Mg Vial IM 10/15/23 20:15
PRN PRN
hypoglycemia
Protocol
HCTZ/Losartan Potassium 1 tab 09/18/23 08:00 09/19/23 08:33
Losartan (100 Mg)/Hydrochlorothiazide (12.5 Mg) Tablet PO 10/16/23 07:59 1 tab
DAILY LYNNE Administration
Hydralazine HCl 10 mg 09/17/23 22:14 09/17/23 22:38
Hydralazine 20 Mg/Ml Vial IV 10/15/23 22:13 10 mg
Q4HPRN PRN Administration
SBP>165
Insulin Glargine 44 units/ 0.44 mls @ 0 mls/hr 09/18/23 08:00 09/19/23 08:32
Device SC 10/16/23 07:59 0.44 mls
DAILY LYNNE Administration
As Directed
Insulin Aspart 12 units 09/18/23 08:00 09/19/23 11:36
Insulin Aspart (100 Units/Ml) 3 Ml Flexpen SC 10/16/23 07:59 Not Given
MEALS LYNNE
Nifedipine 30 mg 09/18/23 11:00 09/19/23 08:33
Nifedipine 30 Mg Extended Release Tablet PO 10/16/23 10:59 30 mg
DAILY LYNNE Administration
Ondansetron HCl 8 mg 09/17/23 22:32
Ondansetron 4 Mg (Orally-Disintegrating) Tablet PO 10/15/23 22:31
DAILY PRN
nausea/vomiting
Pantoprazole Sodium 40 mg 09/18/23 08:00 09/19/23 08:33
Pantoprazole 40 Mg Delayed Release Tablet PO 10/16/23 07:59 40 mg
DAILY LYNNE Administration
Sodium Chloride 0 flush 09/17/23 23:00
Sodium Chloride 0.9% (Flush) Syringe IV 10/15/23 22:59
PER PROTOCOL LYNNE
Home Medications
�Medication �Instructions �Recorded
pantoprazole 40 mg tablet,delayed 40 mg PO DAILY #15 tabs 05/11/13
release
albuterol sulfate 90 mcg/actuation 1 puff inhalation R Q4HPRN PRN 09/17/23
aerosol inhaler sob/wheezing
atorvastatin 20 mg tablet 20 mg PO DAILY High Cholesterol 09/17/23
insulin aspart U-100 100 unit/mL 12 unit SC MEALS Diabetes 09/17/23
(3 mL) subcutaneous pen (Novolog
FlexPen U-100 Insulin aspart)
insulin glargine 100 unit/mL (3 44 unit SC DAILY Diabetes 09/17/23
mL) subcutaneous pen (Lantus
Solostar U-100 Insulin)
losartan 100 1 tab PO DAILY Blood Pressure 09/17/23
mg-hydrochlorothiazide 12.5 mg
tablet
ondansetron 8 mg disintegrating 8 mg PO DAILY PRN nausea/vomiting 09/17/23
tablet
[2023-09-19 08:27] LABS: Glucose - Point of Care 134 mg/dl (70-99)
[2023-09-19] MEDS: LIPITOR 80 MG PO (08:31)
[2023-09-19] MEDS: LANTUS 0.440000000000000002 UNITS SC (08:32)
[2023-09-19] MEDS: PROCARDIA XL (EXTENDED RELEASE) 30 MG PO (08:33)
[2023-09-19] MEDS: MESTINON 60 MG PO (08:33)
[2023-09-19] MEDS: LOW STRENGTH ASPIRIN 81 MG PO (08:33)
[2023-09-19] MEDS: HYZAAR 100-12.5 TABLET 1 TAB PO (08:33)
[2023-09-19] MEDS: PROTONIX 40 MG PO (08:33)
--- NOTE | 2023-09-19 09:55 | CM ---
Patient seen at bedside. Patient stated that he lives with his father in a single story apartment. Patient stated that he has no DME at home. Patient PCP is Dr. Arana, [facility] desi Cannon. Patient stated that his plan is for discharge
home with no needs. Patient does have [facility] part A only. CM will provide IMM and continue to follow for discharge planning needs.
Plan; home with no needs anticipated
[2023-09-19 11:30] VITALS: BP 99/56
[2023-09-19] MEDS: NOVOLOG FLEXPEN SC (11:36)
[2023-09-19 12:44] LABS: Glucose - Point of Care 123 mg/dl (70-99)
[2023-09-19] MEDS: NOVOLOG FLEXPEN 12 UNITS SC (13:39)
--- NOTE | 2023-09-19 13:56 | W.PN.HOSP.TC ---
Today's Communication/Plan
-
dc to home
Assessment / Plan
Assessment / Plan
CTA head/neck:
NECK CTA:
1. Severe calcific atherosclerotic plaque in both proximal internal carotid arteries causing a 50-70% diameter stenosis on the right and 50% diameter stenosis on the left.
2. Severe calcific atherosclerotic plaque at the origin of the right vertebral artery causing a greater than 70% diameter stenosis.
3. Moderate discogenic degenerative disease at C6/C7 with a right central disc-osteophyte complex causing mild to moderate spinal cord compression and central canal stenosis.
HEAD CTA:
1. Severe calcific atherosclerotic plaque in both intracranial internal carotid arteries causing a 50-70% diameter stenosis in the cavernous segment of the left internal carotid artery.
2. 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
3. 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
4. Moderate hypoplasia of the basilar artery and small bilateral posterior cerebral arteries.
5. No CT evidence for acute intracranial hemorrhage or transcortical infarct.
6. 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
7. Mild diffuse cerebral volume loss.
8. SEVERE LEFT SPHENOID SINUSITIS. Moderate left maxillary and ethmoid air cell sinusitis.
Multitude of symptoms including recent nausea and vomiting, frontal headache, right-sided ptosis:
- Presented by the ER as concern for acute CVA
- CT angiogram of the head and neck notable for atherosclerotic disease and prior strokes in the right daigle radiata and both basal ganglia
- cont ASA/statin
- MRI brain without contrast: No acute [employer] abnormality. Small chronic infarcts in the right frontal lobe daigle radiata, the anterior limb of the left internal capsule, the left putamen, and the right cerebellar hemisphere.
- MRV: no venous thrombosis
- d/w Neuro and cleared for DC home. Wear Eye patch. 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
- OP Neuro follow up for MG labs; empiric pyridostigmine did not improved symptoms so stopped.
Hypertensive urgency:
- Continue losartan/hydrochlorothiazide/Procardia XL
- IV hydralazine as needed
Hyponatremia
Non ischemic myocardial injury
DM2:
- 8.7% recently
- cont Lantus/premeal Novolog
- SSI/accuchecks
Sinusitis in the left sphenoid - no fevers. Observe off Abx. ENT outpatient f/u.
FULL/Lovenox
More than 30 minutes spent in discharge including
Final examination of the patient
Summarizing hospital stay
Instructions for continuing care to all relevant caregivers
Preparation of discharge records, prescriptions, and referral forms
Total time spent (in minutes): 41
Anticipated Discharge: Today
Subjective/Interval History
-
Date of Service: September 19, 2023
no new complaints
Objective Data
-
Vital Signs:
Vital Signs
Temp Pulse Resp BP Pulse Ox
98.6 F 101 16 133/73 96
09/19/23 07:38 09/19/23 08:33 09/19/23 07:38 09/19/23 08:33 09/19/23 07:38
I&O
09/18/23 09/19/23 09/20/23
06:59 06:59 06:59
Intake Total 120 / 120 40 / 40
Balance 120 / 120 40 / 40
Physical Exam
-
General: No Apparent Distress
HEENT: Normocephalic and Atraumatic
Respiratory: Negative Wheezes
Cardiac: Regular Rhythm and S1/S2
GI: Soft
Musculoskeletal: No Edema
Neuro: AO x 3
Hematologic / Lymphatic: No Lymphadenopathy
Psych: Calm
Data Reviewed
-
Total Time Spent with Patient (in minutes): 41
Labs: Labs Reviewed by me
--- NOTE | 2023-09-19 14:12 | W.DS.TRANS ---
DC Summary - Lap Winder
-
Discharge Instructions:
Discharge Diagnosis/Procedures double vision
Diet Low Cholesterol,Diabetic, Carb Controlled
Activity As tolerated
Bathing Restrictions None
Instructions:
Stand-Alone Forms:
Changes to Home Medications: No
Discharge Medications:
DC Medications w/original date entered in [facility]
pantoprazole 40 mg tablet,delayed release 40 mg PO DAILY #15 tabs 05/11/13
albuterol sulfate 90 mcg/actuation aerosol inhaler 1 puff inhalation R Q4HPRN PRN sob/wheezing 09/17/23
insulin aspart U-100 100 unit/mL (3 mL) subcutaneous pen (Novolog FlexPen U-100 Insulin aspart) 12 unit SC MEALS Diabetes 09/17/23
insulin glargine 100 unit/mL (3 mL) subcutaneous pen (Lantus Solostar U-100 Insulin) 44 unit SC DAILY Diabetes 09/17/23
losartan 100 mg-hydrochlorothiazide 12.5 mg tablet 1 tab PO DAILY Blood Pressure 09/17/23
ondansetron 8 mg disintegrating tablet 8 mg PO DAILY PRN nausea/vomiting 09/17/23
aspirin 81 mg chewable tablet (Children's Aspirin) 81 mg PO DAILY #100 tabs 09/19/23
atorvastatin 20 mg tablet 80 mg (4 x 20 mg) PO DAILY #30 tabs 09/19/23
nifedipine 30 mg tablet,extended release 30 mg PO DAILY #30 tabs 09/19/23
Home Medication Changes
Pending Results: No
Total time spent discharging patient (in min): 41
== END 2023-09-19 15:40 | disposition home or self-care (01) | DRG 123 ==
LOC: 3 WEST ACU 18:36
PROVIDERS: Clinical Nurse Specialist Family Health; Physician Assistant Medical; ADMITTING PHYSICIAN Internal Medicine; ATTENDING PHYSICIAN Internal Medicine; CONSULT PHYSICIAN Psychiatry & Neurology Neurology; EMERGENCY PHYSICIAN Emergency Medicine; FAMILY PHYSICIAN Family Medicine
DX: H49.00 Third [oculomotor] nerve palsy, unspecified eye (principal); E87.1 Hypo-osmolality and hyponatremia; I5A Non-ischemic myocardial injury (non-traumatic); Z79.82 Long term (current) use of aspirin; I16.0 Hypertensive urgency; E11.9 Type 2 diabetes mellitus without complications; K21.9 Gastro-esophageal reflux disease without esophagitis; Z87.891 Personal history of nicotine dependence; I67.2 Cerebral atherosclerosis; J32.3 Chronic sphenoidal sinusitis
CPT/HCPCS: 70496; 70498; 70551; 70552; 80048; 80053; 80061; 82962; 83036; 84484; 85025; 85610; 85730; 93005; 96360; 97162; 97166; 99285; A9575; Q9967

== ENCOUNTER 2024-03-28 10:44 | Emergency (ER) | payer MEDICARE, BC, SELFPAY ==
[2024-03-28 11:21] VITALS: BP 158/89
--- NOTE | 2024-03-28 11:30 | ED.GENMED ---
History of Present Illness
<Francesca Caruso DO - Last Filed: 03/28/24 14:26>
General
Chief Complaint: Dizziness
Time Seen by Provider: 03/28/24 12:40
History of Present Illness
History of Present Illness:
68-year-old male with prior history of hypertension, diabetes, 3rd nerve palsy presenting to the emergency department for dizziness. Patient reports that the dizziness has been intermittent for the past week, however more persistent in the past 2
days. Reports feeling off balance with Ambulation, and dizziness for with past head movement. Reports that he did have word ago, feels similar. Denies weakness or numbness to his extremities. Denies visual changes. Denies fever, however does
note recent head cold last week. Denies chest pain or difficulty breathing. Denies abdominal pain or GI symptoms. Denies social Medical complaints
Past History
<Kellen Bang PA-C - Last Filed: >
Past History
ED Past Medical History: GERD, HTN, Hypercholesterolemia, NIDDM and Other (Pericarditis, obesity)
ED Past Surgical History: Other (Left leg surgery for fracture, transforaminal epidural steroids at L4 in 2020)
Social History
Tobacco: Non-smoker
Alcohol: Occasional
Employment: Employed
Family History
Family History: Hypertension
Phy Exam
<DO Jacob Pagan Last Filed: 03/28/24 14:26>
Physical Exam
Physical Exam:
General: Well-appearing, no clinical signs of dehydration, nontoxic and in no acute distress
HEENT: protecting airway, extraocular movements intact. Nystagmus when looking towards the left, fatigable
Neck: appears supple
CV: Normal heart rate, regular rhythm, no evidence of cyanosis
Resp: No accessory muscle use, no increased work of breathing, lungs clear to auscultation bilaterally
Abd: Soft and non-distended, no tenderness to palpation
Extremities: No deformities, no swelling
Neuro: alert, no focal neurologic deficit
: deferred
Rectal: deferred
Psych: Normal affect
Skin: Intact
Course
<Francesca Caruso, DO - Last Filed: 03/28/24 14:26>
Orders/Labs/Results
Orders:
Orders
03/28/24 11:24
Electrocardiogram (*1) Urgent
Reason for Study: Other
Other Reason for Exam: Possible Stroke
CT Head W/o Iv Contrast Urgent
Comment:
Reason For Exam: dizziness
Bedside Glucose- Treatment ONCE
EKG- Treatment ONCE
03/28/24 11:44
Complete Blood Count/With Diff Urgent
Comprehensive Metabolic Panel Urgent
PTT Urgent
Prothrombin Time Urgent
Troponin I Urgent
03/28/24 13:05
Meclizine [Antivert] 25 mg PO NOW STA
Abnormal Lab Results
03/28/24
11:44
MCV 94.6 H fL
(80.0-94.0)
MCH 32.5 H pg
(27.0-31.0)
Absolute Monos (auto) 0.9 H 10^3/uL
(0.1-0.6)
Monocytes % 11.0 H %
(1.7-9.3)
Glucose 173 H mg/dl
(70-99)
POC Glucose 178 H mg/dl
(70-99)
03/28/24 11:44
03/28/24 11:44
Vital Signs
Initial and Last Documented VS:
Initial Vital Signs
Temp Pulse Resp BP Pulse Ox
98.2 F 93 20 158/89 98
03/28/24 11:21 03/28/24 11:21 03/28/24 11:21 03/28/24 11:21 03/28/24 11:21
Last Documented Vital Signs
Temp Pulse Resp BP Pulse Ox
98.2 F 93 20 158/89 98
03/28/24 11:21 03/28/24 11:21 03/28/24 11:21 03/28/24 11:21 03/28/24 11:21
<Kellen Bang PA-C - Last Filed: >
Orders/Labs/Results
Orders:
Orders
03/28/24 11:24
Electrocardiogram (*1) Urgent
Reason for Study: Other
Other Reason for Exam: Possible Stroke
CT Head W/o Iv Contrast Urgent
Comment:
Reason For Exam: dizziness
Bedside Glucose- Treatment ONCE
EKG- Treatment ONCE
03/28/24 11:44
Complete Blood Count/With Diff Urgent
Comprehensive Metabolic Panel Urgent
PTT Urgent
Prothrombin Time Urgent
Troponin I Urgent
03/28/24 13:05
Meclizine [Antivert] 25 mg PO NOW STA
Abnormal Lab Results
03/28/24
11:44
MCV 94.6 H fL
(80.0-94.0)
MCH 32.5 H pg
(27.0-31.0)
Absolute Monos (auto) 0.9 H 10^3/uL
(0.1-0.6)
Monocytes % 11.0 H %
(1.7-9.3)
Glucose 173 H mg/dl
(70-99)
POC Glucose 178 H mg/dl
(70-99)
03/28/24 11:44
03/28/24 11:44
Vital Signs
Initial and Last Documented VS:
Initial Vital Signs
Temp Pulse Resp BP Pulse Ox
98.2 F 93 20 158/89 98
03/28/24 11:21 03/28/24 11:21 03/28/24 11:21 03/28/24 11:21 03/28/24 11:21
Last Documented Vital Signs
Temp Pulse Resp BP Pulse Ox
98.2 F 93 20 158/89 98
03/28/24 11:21 03/28/24 11:21 03/28/24 11:21 03/28/24 11:21 03/28/24 11:21
<Francesca Caruso DO - Last Filed: 03/28/24 14:26>
MDM/Problems Addressed
MDM/Problems Addressed:
68-year-old male with prior history of a 3rd nerve palsy, hypertension, diabetes presenting for dizziness. Vital signs on arrival are significant for mild hypertension.
On exam, patient is resting comfortably, no acute distress or discomfort. Patient with reassuring neurologic exam, no focal neurologic deficits, does have fatigable nystagmus when looking to his left with ultimate suspicion for vertigo. When
looking at patient's ears, does have a clogged left ear, reports recent upper respiratory infection last week. Suspect possible inciting etiology to patient's symptoms. Patient afebrile, nontoxic with lower suspicion for systemic infection. EKG
obtained, nonischemic, no arrhythmia, normal vitals without concern for cardiac pathology. Patient nursing evaluation prior to my assessment, laboratory analysis and CT brain ordered. Pending results. Will administer meclizine and reassess for
improvement.
14:20 - Labs unremarkable and CT brain shows old infarct, no acute infarct. On reassessment, patient does note some improvement of symptoms. Feel stable for discharge with supportive therapy with meclizine. Will also prescribe Debrox given left
cerumen impaction. Advise close outpatient follow-up. Return precautions discussed and patient verbalized understanding.
<Francesca Caruso DO - Last Filed: 03/28/24 14:26>
*Critical Care Note
Total Time (30-74mins, 75-104mins- exclusive of procedures): Not Applicable
ED Attending Note
<Kellen Bang PA-C - Last Filed: >
-
Portions of this chart may have been created with voice recognition software.� Occasional wrong word or��sound alike� substitutions may have occurred due to the inherent limitations of voice recognition software.
Discharge Plan
Departure
Prescriptions:
No Action
pantoprazole 40 MG tablet,delayed release (DR/EC)
40 mg PO DAILY Qty: 15 0RF
ondansetron 8 mg tablet,disintegrating
8 mg PO DAILY PRN (Reason: nausea/vomiting)
albuterol sulfate 90 mcg/actuation Hfa Aerosol Inhaler
1 puff INHALATION R Q4HPRN PRN (Reason: sob/wheezing)
insulin aspart U-100 [Novolog FlexPen U-100 Insulin] 100 unit/mL (3 mL) insulin pen
12 unit SC MEALS
insulin glargine [Lantus Solostar U-100 Insulin] 100 unit/mL (3 mL) insulin pen
44 unit SC DAILY
losartan-hydrochlorothiazide 100-12.5 mg Tablet
1 tab PO DAILY
atorvastatin 20 mg Tablet
80 mg PO DAILY Qty: 30 0RF
nifedipine 30 mg Tablet Extended Release
30 mg PO DAILY Qty: 30 0RF
aspirin [Children's Aspirin] 81 mg Tablet,Chewable
81 mg PO DAILY Qty: 100 0RF
Referrals:
Cayetano Arana MD [Family Provider] -
Interventions
Interventions:
*Risk Screen - Suicide Last Done: 03/28/24 11:21
*General Assessment Last Done: 03/28/24 11:21
*Neglect/Abuse Screening Last Done: 03/28/24 11:21
ED- Fall Risk Assessment Last Done: 03/28/24 11:48
ED- Neurological Assessment Last Done: 03/28/24 11:48
ED Swallowing Screen Last Done: 03/28/24 11:48
Discharge Date and Time
Print Language: AZERI
[2024-03-28 11:46] LABS: Glucose - Point of Care 178 mg/dl (70-99)
[2024-03-28 11:59] LABS: % Basophils 0.6 % (0-2); % Eosinophils 2.3 % (0-6); % Immature Granulocytes 0.4 % (0-0.5); % Lymphocytes 23.7 % (20.5-51.1); Absolute Basophils 0.1 10^3/uL (0-0.2); Absolute Eosinophils 0.2 10^3/uL (0-0.7); Absolute Monocytes 0.9 10^3/uL (0.1-0.6); Absolute Neutrophils 5.3 10^3/uL (1.4-6.5); Hematocrit 46.9 % (39.0-52.0); Hemoglobin 16.1 g/dL (13.0-18.0); Mean Corp Hgb Conc. 34.3 g/dL (33.0-37.0); Mean Corpuscular Hgb 32.5 pg (27.0-31.0); Mean Corpuscular Volume 94.6 fL (80.0-94.0); Mean Platelet Volume 8.9 fL (7.4-10.4); Nucleated Red Blood Cells % 0 % (-); Platelet Count 316 10^3/uL (130-400); Red Blood Cell Count 4.96 10^6/uL (4.70-6.10); Red Cell Dist. Width 12.8 % (11.5-14.5); White Blood Cell Count 8.6 10^3/uL (4.8-10.8)
[2024-03-28 12:08] LABS: INR 0.93
[2024-03-28 12:09] LABS: APTT 26.2 Sec (23.4-35.0)
[2024-03-28] MEDS: ANTIVERT 25 MG PO (13:11)
[2024-03-28 13:13] LABS: Blood Urea Nitrogen 13 mg/dl (9-20); Glucose 173 mg/dl (70-99); eGFR > 60.00
[2024-03-28 13:14] LABS: ALT (SGPT) 21 U/L (0-50); AST (SGOT) 26 U/L (17-59); Albumin 4.3 g/dl (3.5-5.0); Alkaline Phosphatase 66 U/L (38-126); Calcium 9.4 mg/dl (8.4-10.2); Carbon Dioxide 25 mmol/L (22-30); Chloride 103 mmol/L (98-107); Potassium 4.5 mmol/L (3.5-5.1); Sodium 138 mmol/L (135-145); Total Bilirubin 0.9 mg/dl (0.2-1.3); Total Protein 7.2 g/dl (6.3-8.2)
[2024-03-28 13:15] LABS: Troponin I < 0.012 ng/ml
[2024-03-28 15:19] VITALS: BP 150/82
== END 2024-03-28 15:20 | disposition home or self-care (01) ==
LOC: EMR 10:44
PROVIDERS: Physician Assistant; EMERGENCY PHYSICIAN Student in an Organized Health Care Education/Training Program; FAMILY PHYSICIAN Family Medicine
DX: R42 Dizziness and giddiness (principal); H61.22 Impacted cerumen, left ear; I10 Essential (primary) hypertension; E11.9 Type 2 diabetes mellitus without complications; E78.00 Pure hypercholesterolemia, unspecified; K21.9 Gastro-esophageal reflux disease without esophagitis
CPT/HCPCS: 99284; 70450; 80053; 82962; 84484; 85025; 85610; 85730; 93005

== ENCOUNTER → 2025-01-12 12:35 | Outpatient (REF) | payer BC, SELFPAY | LOC: MRI 3T 12:35 | PROVIDERS: ATTENDING PHYSICIAN Nurse Practitioner; FAMILY PHYSICIAN Family Medicine | DX: R42 Dizziness and giddiness (principal) | CPT/HCPCS: 70553; A9575 ==